=== PATIENT | male | born 1955 | race Caucasian/White ===

== ENCOUNTER 2018-03-31 19:45 | Emergency (ER) | payer OTHER, SELFPAY ==
[2018-03-31 19:46] VITALS: BP 139/80; PULSE 100; RESP 16; TEMP 37.7; O2SAT 95; BMI 36.8
--- NOTE | 2018-03-31 20:28 | US_ITS ---
STUDY: VENOUS DOPPLER ULTRASOUND - RIGHT LOWER EXTREMITY REASON FOR EXAM: Male, 62 years old. Calf pain and swelling TECHNIQUE: Ultrasound evaluation of the deep vein system to include escobar-scale imaging and compression was performed. Escobar-scale imaging and Doppler sonographic evaluation, including duplex spectral analysis and qualitative color flow sonography, was performed. COMPARISON: None. FINDINGS: Common Femoral Vein: Normal compression, spontaneity and augmentation. Normal color Doppler. Common Femoral Vein/Greater Saphenous Junction: Normal compression, spontaneity and augmentation. Normal color Doppler. Femoral Proximal: Normal compression, spontaneity and augmentation. Normal color Doppler. Femoral Middle: Normal compression, spontaneity and augmentation. Normal color Doppler. Femoral Distal: Normal compression, spontaneity and augmentation. Normal color Doppler. Popliteal Vein: Normal compression, spontaneity and augmentation. Normal color Doppler. Posterior Tibial Vein: Normal compression, spontaneity and augmentation. Normal color Doppler. Peroneal Vein: Normal compression, spontaneity and augmentation. Normal color Doppler. US/Venous Duplex Imag/Limited/Uni IMPRESSION: Normal venous Doppler ultrasound of the right lower extremity. Electronically Signed: Silas Oliva, at 21:07 EST Tel , Service support ,
[2018-03-31 21:15] LABS: Absolute Lymphocyte Count 1.71 X10^3/ul (0.83-4.51); Absolute Neutrophil Count 7.2 X10^3/uL (2.0-7.7); Basophil# 0.03 X10^3/uL; Basophil% 0.3 % (0-1); Eosinophil# 0.12 X10^3/uL; Eosinophils% 1.2 % (0-5); Hematocrit 42.3 % (40-54); Hemoglobin 13.7 g/dl (13.0-16.5); Lymphocyte # 1.71 X10^3/ul (4.0); Lymphocyte % 17.2 % (19-41); Mean Corp Hgb Conc 32.4 g/gl (32-36); Mean Corpuscular Hgb 30.4 pg (27.0-32.0); Mean Platelet Vol. 9.1 fl (6.2-12.0); Monocyte# 0.89 X10^3/uL; Monocyte% 8.9 % (0-10); Neutrophil # 7.19 X10^3/uL (2.7-7.7); Neutrophil % 72.3 % (47-70); Platelet Count 183 K/mm3 (150-450); RBC Distribution Width CV 12.7 % (11.6-14.6); RBC Distribution Width SD 43.5 fl (35.1-43.9)
[2018-03-31 21:17] LABS: POSITIVE COUNT NO; POSITIVE DIFFERENTIAL NO; POSITIVE MORPHOLOGY NO
[2018-03-31 21:29] LABS: Anion Gap 6 (5-15); BUN 20 mg/dL (7-18); BUN/Creat Ratio 23.3 RATIO (10-20); Calcium,Total 8.8 mg/dL (8.5-10.1); Chloride 102 mmol/L (98-107); Creatinine, Serum 0.86 mg/dL (0.70-1.30); EST Glomerular Filtration Rate 96 mL/min (>60); Est Glom Filt Rate - Afr Amer 116 mL/min (>60); Estimated Creatinine Clearance 86.16 ml/min; Glucose 90 mg/dL (74-106); Potassium 3.8 mmol/L (3.5-5.1); Sodium Level 135 mmol/L (136-145)
[2018-03-31] MEDS: Smz/Tmp Ds Tablet 1 TABLET PO ×2 (21:43→22:24)
[2018-03-31] MEDS: Cephalexin 250 MG Capsule 500 MG PO ×2 (21:43→22:24)
--- NOTE | 2018-03-31 22:08 | ED.VISSUMM ---
- ER Visit Summary Date of Service: 03/31/18 Chief Complaint: Right lower leg swelling and redness. History of Present Illness: The patient is a 62 M past medical history of asthma and Sjogren's. States that 4-5-day history of right lower leg redness swelling. No history of DVT or PE. He does work as a long-distance reach lift truck driver. No recent hospitalization. No fever but he has had chills. He denies any trauma. Physical Examination: Well-appearing middle-age male. Vital signs are stable. He is afebrile. He does not look septic or toxic. He is in no distress. H EENT exam unremarkable. Neck nontender no lymphadenopathy. Lungs clear to auscultation bilaterally. Heart regular rhythm no murmur. Abdomen soft nontender. Extremities moves all 4. Neurovascular intact. His right lower leg from the proximal white down to up just above his ankle is red, mildly swollen, and warm to touch. There is minimal edema. His popliteal bursa is mildly swollen but nontender. Right knee ankle and foot are nontender neurovascular intact. He has normal range of motion to his right hip, knee and ankle. There is no signs of a septic joint. Calf is nontender. Right foot is neurovascular intact with DP pulse. Dorsi plantar flexion. Touch sensation. Neurologic exam normal. Test Results: Noninvasive study right lower extremity shows no DVT per the reproduction technician. CBC shows a white count of 10. Hemoglobin 13. No bands. Electrolytes unremarkable. Gap was 6. Normal creatinine. Emergency Department Course and Treatment: Patient's history and exam are consistent with a right lower has a septic bursitis. He will be started on Keflex and Bactrim. And close follow-up with his primary care physician. Patient was given a dose of both antibiotics here and a dose for the first thing in the morning before he gets his prescription filled. He does return if doing worse. He was offered but deferred admission. Treatment Plan: Keflex 500 4 times daily for 10 days. Bactrim 1 twice daily for 10 days. Elevate the leg. Follow-up with his doctor. Disposition: Discharge Impression: Acute right lower extremity cellulitis This note was generated with [employer] dictation software. It may contain incorrect words, spelling, and punctuation that were not noted in review of the chart prior to signing ED Disposition - Plan for ED Patient: Chief Complaint: Lower Extremity Injury Referrals: Alexander Pedraza MD [Primary Care Provider] -
--- NOTE | 2018-03-31 22:11 | ED.DCSUM_ITS ---
- ER Visit Summary Date of Service: 03/31/18 Chief Complaint: Right lower leg swelling and redness. History of Present Illness: The patient is a 62 M past medical history of asthma and Sjogren's. States that 4-5-day history of right lower leg redness swelling. No history of DVT or PE. He does work as a long-distance otr tanker truck driver. No recent hospitalization. No fever but he has had chills. He denies any trauma. Physical Examination: Well-appearing middle-age male. Vital signs are stable. He is afebrile. He does not look septic or toxic. He is in no distress. H EENT exam unremarkable. Neck nontender no lymphadenopathy. Lungs clear to auscultation bilaterally. Heart regular rhythm no murmur. Abdomen soft nontender. Extremities moves all 4. Neurovascular intact. His right lower leg from the proximal white down to up just above his ankle is red, mildly swollen, a nd warm to touch. There is minimal edema. His popliteal bursa is mildly swollen but nontender. Right knee ankle and foot are nontender neurovascular intact. He has normal range of motion to his right hip, knee and ankle. There is no signs of a septic joint. Calf is nontender. Right foot is neurovascular intact with DP pulse. Dorsi plantar flexion. Touch sensation. Neurologic exam normal. Test Results: Noninvasive study right lower extremity shows no DVT per the plumbing technician. CBC shows a white count of 10. Hemoglobin 13. No bands. Electrolytes unremarkable. Gap was 6. Normal creatinine. Emergency Department Course and Treatment: Patient's history and exam are consistent with a right lower has a septic bursitis. He will be started on Keflex and Bactrim. And close follow-up with his primary care physician. Patient was given a dose of both antibiotics here and a dose for the first thing in the morning before he gets his prescription filled. He does return if doing worse. He was offered but deferred admission. Treatment Plan: Keflex 500 4 times daily for 10 days. Bactrim 1 twice daily for 10 days. Elevate the leg. Follow-up with his doctor. Disposition: Discharge Impression: Acute right lower extremity cellulitis This note was generated with [employer] software. It may contain incorrect words, spelling, and punctuation that were not noted in review of the chart prior to signing ED Disposition - Plan for ED Patient: Chief Complaint: Lower Extremity Injury Referrals: Alexander Pedraza MD [Primary Care Provider] -
--- NOTE | 2018-03-31 22:11 | ED.DEP ---
ED Disposition - Plan for ED Patient: Disposition: Home or Assisted Living Chief Complaint: Lower Extremity Injury Instructions: ED Infec Skin Cellulitis Prescriptions: Cephalexin [Keflex] 500 mg PO Q6 #40 cap Smz/Tmp Ds [Bactrim Ds] 1 tab PO BID #20 tab Referrals: Alexander Pedraza MD [Primary Care Provider] - 3-5 Days Additional Instructions: Elevate leg to decrease swelling. Tylenol and Motrin for pain. Keflex 500 mg 4 times a day till gone Bactrim 1 pill twice a day for 10 days. Call follow-up with your doctor. If this is getting a lot worse moving above your knee, fever or severe knee pain you need to return for possible admission for IV antibiotics.
== END 2018-03-31 22:27 | disposition home or self-care (01) ==
PROVIDERS: Emergency Provider Emergency Medicine; Family Provider Family Medicine; PCP Family Medicine
DX: L03.115 Cellulitis of right lower limb (principal)
CPT/HCPCS: 80048; 85025; 93971; 99283; A4216